=== PATIENT | male | born 1955 ===

== ENCOUNTER 2019-01-30 07:41 | Outpatient (CLI) | payer OTHER ==
[~2019-01-30] VITALS: Ht 152.4 cm; Wt 59.0 kg
== END 2019-01-30 08:00 | disposition home or self-care (01) ==
LOC: OFIC 805 07:41
DX: H90.3 Sensorineural hearing loss, bilateral (principal); H69.83 Other specified disorders of Eustachian tube, bilateral; R43.8 Other disturbances of smell and taste; R43.2 Parageusia; J31.0 Chronic rhinitis

== ENCOUNTER 2019-01-30 11:25 | Outpatient (CLI) | payer OTHER | END 2019-01-30 14:38 | disposition home or self-care (01) | LOC: TOM 11:25 | DX: H70.11 Chronic mastoiditis, right ear (principal); H69.83 Other specified disorders of Eustachian tube, bilateral; H90.3 Sensorineural hearing loss, bilateral ==

== ENCOUNTER → 2025-01-29 | Outpatient (CLI) | payer OTHER | END | disposition home or self-care (01) | LOC: SONOGRAMA 08:14 | PROVIDERS: ATTEND Internal Medicine | DX: K80.00 Calculus of gallbladder with acute cholecystitis without obstruction (principal) ==